=== PATIENT | female | born 1945 | race Caucasian/White ===

== ENCOUNTER 2018-04-22 18:36 | Emergency (ER) | payer OTHER ==
[~2018-04-22] VITALS: Ht 149.9 cm; Wt 50.8 kg
== END 2018-04-22 19:12 | disposition home or self-care (01) ==
LOC: FSED 18:36
DX: K04.7 Periapical abscess without sinus (principal); K02.9 Dental caries, unspecified
CPT/HCPCS: 99283

== ENCOUNTER → 2018-07-17 | Day surgery (SDC) | payer OTHER ==
[2018-07-13 12:24] LABS: BASOPHILS % 0.5 % (0.0-1.0); EOSINOPHILS # (AUTO) 0.2 (0.0-0.4); EOSINOPHILS % 2.4 % (0.0-6.0); HEMATOCRIT 39.3 % (34.2-44.1); HEMOGLOBIN 13.4 g/dL (12.0-16.0); LYMPHOCYTES # (AUTO) 2.1 (1.0-3.2); LYMPHOCYTES % 32.3 % (18.0-39.1); MEAN CORPUSCULAR HEMOGLOBIN 30.5 pg (28-32); MEAN CORPUSCULAR HGB CONC 34.1 g/dL (31-35); MEAN CORPUSCULAR VOLUME 89.3 fL (81-99); MONOCYTES # (AUTO) 0.6 (0.2-0.8); NEUTROPHILS # (AUTO) 3.5 (2.1-6.9); NEUTROPHILS % 55.6 % (38.7-80.0); PLATELET COUNT 292 x10e3/uL (140-360); RED CELL DISTRIBUTION WIDTH 11.4 % (11.7-14.4)
--- NOTE | 2018-07-13 12:26 | Diagnostic Imaging Report ---
EXAMINATION: PA and lateral views of the chest. COMPARISON: None CLINICAL HISTORY: preoperative, trigger finger DISCUSSION: Lines/tubes: None. Lungs: The lungs are well inflated and clear. No pneumonia or pulmonary edema. None. Pleura: No pleural effusion or pneumothorax. Heart and mediastinum: The cardiomediastinal silhouette is normal. Bones and soft tissues: No acute bony abnormalities. IMPRESSION: No acute cardiopulmonary abnormalities. Signed by: Dr. Ron Monahan M.D. on 07/13/2018 12:23 PM
[2018-07-13 12:42] LABS: ANION GAP 14.3 mmol/L (8-16); BLOOD UREA NITROGEN 17 mg/dL (7-26); BUN/CREATININE RATIO 25 (6-25); CALCIUM 9.8 mg/dL (8.4-10.2); CARBON DIOXIDE 30 mmol/L (22-29); CHLORIDE 98 mmol/L (98-107); CREATININE, SERUM 0.69 mg/dL (0.57-1.11); EST GLOMERULAR FILTRATION RATE > 60 ML/MIN (60-); GLUCOSE 111 mg/dL (74-118); POTASSIUM 3.3 mmol/L (3.5-5.1); SODIUM 139 mmol/L (136-145)
[~2018-07-17] MED LIST: ACYCLOVIR200 MG PO; ALEVE220 MG PO; AMITIZA24 MCG PO; ATORVASTATIN CA20 MG PO; BUPIVACAINE HCL 0.5% INJ 30 ML VIAL INJ ONE; CEFAZOLIN SOD 1 GM VIAL ONE; DEXAMETHASONE SOD PHOS INJ 4 MG/ML VIAL ONE; FENTANYL CITRATE/PF 100MCG/2 ML INJ ONE; FISH OIL 1,2001 EACH PO; HUMALOG100 UNIT/3 SC; HYDROCHLOROTHIA25 MG PO; KETOROLAC TROMETHAMINE 30 MG/ML VIAL ONE; LIDOCAINE HCL 2% LOCAL INJ 5 ML SDV VIAL INJ ONE; MECLIZINE HCL12.5 MG PO; MIDAZOLAM HCL 2 MG/2 ML VIAL ONE; MIRTAZAPINE15 MG PO; MUPIROCIN 2% OINT 22 GM TUBE ONE; ONDANSETRON HCL INJ 2 MG/ML VIAL ONE; PANTOPRAZOLE SO40 MG PO; POTASSIUM GLUCO99 M1 PO; PROPOFOL IV EMULSION 10 MG/ML 20 ML VIAL ONE; RAMIPRIL5 MG PO; RANITIDINE HCL150 MG PO; SENNA LAXATIVE1 EACH PO; SEVOFLURANE INHAL SOLN 250 ML PEN BTL ONE; TRESIBA SC; UNITHROID112 MCG PO; VIT B12 PO; VIT D3 PO
--- OUTSIDE RECORDS SUMMARY | 2018-07-17 05:21 | XMS REPORT | Clinical Summary ---
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 8 tablet Active atorvastatin (LIPITOR) 20 Take 20 mg by 1 MG tablet mouth daily. 8 Active ramipril (ALTACE) 2.5 MG Take by mouth 0 capsule daily. 8 Active insulin GLARGINE (LANTUS Inject 20 0 SOLOSTAR) 100 unit/mL Units under injection (pen) the skin. Active insulin lispro (HumaLOG Inject under 0 U-100 Insulin) 100 the skin. 1 unit/mL injection Active levothyroxine (SYNTHROID, Take one tab 0 LEVOXYL) 125 mcg tablet by mouth 5 daily on empty stomach 1 hr prior breakfast achedule appointment for additional refills Active AMITIZA 24 mcg capsule 0 8 Active traMADol (ULTRAM) 50 mg Take 50 mg by 1 tablet mouth 2 (two) 8 times a day. Active acyclovir (ZOVIRAX) 200 Take 200 mg 1 MG capsule by mouth 8 daily. Active diclofenac (VOLTAREN) 1 % 0 gel 8 Active mirtazapine (REMERON) 7.5 0 MG tablet 8 Active ranitidine (ZANTAC) 150 Take 150 mg 0 MG tablet by mouth as needed for heartburn. Active potassium gluconate 595 Take by mouth 0 mg (99 mg) tablet daily. Active cholecalciferol, vitamin Take by 0 D3, (VITAMIN D3) 5,000 mouth. unit tablet Active vitamin E 400 UNIT Take 400 0 capsule Units by mouth daily. Active folic acid (FOLVITE) 400 Take 400 mcg 0 MCG tablet by mouth daily. Active cyanocobalamin (VITAMIN Take 1,000 0 B-12) 1000 MCG tablet mcg by mouth daily. Active senna (SENOKOT) 8.6 mg Take 1 tablet 0 tablet by mouth daily. Active [id number]-lvi-[id number] Take by 0 oil 1,050-1,200 mg mouth. capsule Active naproxen sodium (ALEVE) Take by mouth 0 220 mg capsule as needed. Active meclizine (ANTIVERT) 25 Take 1 tablet 270 tablet 3 mg tablet (25 mg total) 8 by mouth 3 (three) times a day as needed for dizziness for up to 90 days. 12/20/2017 Discontinued meclizine (ANTIVERT) 25 0 mg tablet 8 12/20/2017 Discontinued levothyroxine (SYNTHROID, Take 100 mcg 1 LEVOXYL) 100 mcg tablet by mouth 8 daily. 12/21/2017 Discontinued meclizine (ANTIVERT) 25 Take 1 tablet 180 tablet 3 mg tablet (25 mg total) 8 by mouth 3 (three) times a day as needed for dizziness for up to 180 days. Active Problems Not on file Encounters Care Team Description Date Type Specialty Tin Briseno MD Tinnitus of both ears (Primary Dx); Vertigo, benign paroxysmal, bilateral; Sensorineural hearing loss, bilateral 12/20/2017 Office Visit Otolaryngology after 07/16/2017 Family History Medical History Relation Name Comments Cancer Father Heart disease Father Hypertension Father Cancer Maternal Grandfather Diabetes Maternal Grandfather Diabetes Maternal Grandmother Diabetes Mother Hypertension Paternal Grandfather Diabetes Paternal Grandmother Relation Name Status Comments Father Maternal Grandfather Maternal Grandmother Mother Paternal Grandfather Paternal Grandmother Social History Date Tobacco Use Types Packs/Day Years Used Former Smoker 13 Smokeless Tobacco: Never Used Alcohol Use Drinks/Week oz/Week Comments Yes 2 Glasses of 1.2 wine Sex Assigned at Date Recorded Not on file Industry Job Start Date Occupation Not on file Not on file Not on file Travel End Travel History Travel Start No recent travel history available. Last Filed Vital Signs Time Taken Vital Sign Reading 12/20/2017 1:45 PM CDT Blood Pressure 154/72 12/20/2017 1:45 PM CDT Pulse 103 - Temperature - - Respiratory Rate - - Oxygen Saturation - - Inhaled Oxygen - Concentration 12/20/2017 1:45 PM CDT Weight 51.7 kg (114 lb) - Height - - Body Mass Index - Plan of Treatment Health Maintenance Due Date Last Done Comments COLON CANCER SCREENING 1996 SHINGRIX VACCINE (1 of 2) 1996 ZOSTER VACCINE 2006 BREAST CANCER SCREENING 07/29/2016 07/29/2014, 07/26/2013, 07/17/2012 INFLUENZA VACCINE 04/04/2018 05/12/2016, 05/12/2015, 05/05/2015, Additional history exists PNEUMOCOCCAL-13 Completed 10/29/2014 PNEUMOCOCCAL Completed 05/12/2015, 05/05/2015, 05/05/2006 POLYSACCHARIDE VACCINE AGE 65 AND OVER Procedures Comments Procedure Name Priority Date/Time Associated Diagnosis COMPUTERIZED DYNAMIC Routine 12/20/2017 Vertigo, benign POSTUROGRAPHY 2:54 PM CDT paroxysmal, bilateral COMPREHENSIVE HEARING Routine 12/20/2017 Tinnitus of both ears TEST 2:54 PM CDT Vertigo, benign paroxysmal, bilateral after 07/16/2017 Results * Comprehensive hearing test (12/20/2017 2:54 PM CDT) Narrative Performed At * [facility] (12/20/2017 2:54 PM CDT) Narrative Performed At after 07/16/2017 Insurance Payer Benefit Subscriber ID Type Phone Address Plan / Group [employer] TEX[employer] xxxxxxxxx [facility] Advance Directives Patient has advance care planning documents on file. For more information, judie sarabia contact: Giuliano Muller [address] [place] [address]
--- OUTSIDE RECORDS SUMMARY | 2018-07-17 05:22 | XMS REPORT | Summary of Care ---
Author Author [facility] Organization [facility] Address Unknown Phone Unavailable Encounter HQ Zander(FIN) [id number] Date(s): 12/18/17 - 12/18/17 [facility] [address], [address] [place] [address]- [phone] Discharge Disposition: Home or Self Care Attending Physician: Zoe Elaine DO Vital Signs Most recent to 1 oldest [Reference Range]: Height 149.86 cm (12/18/17 3:50 PM) Temperature Oral 98.3 DegF [96.4-99.1 DegF] (12/18/17 3:50 PM) Blood Pressure 128/79 mmHg [90-140/60-90 mmHg] (12/18/17 3:50 PM) Respiratory Rate 14 BRMIN [14-20 BRMIN] (12/18/17 3:50 PM) Peripheral Pulse 86 bpm Rate [60-100 bpm] (12/18/17 3:50 PM) Weight 51.364 kg (12/18/17 3:50 PM) Body Mass Index 22.87 m2 (12/18/17 3:50 PM) Problem List Condition Effective Dates Status Health Status Informant Anxiety Active disorder(Confirmed) Benign Active hypertension(Confirm ed) Chronic pain Active syndrome(Confirmed) IBS (irritable bowel Active syndrome)(Confirmed) Vitamin B 12 Active deficiency(Confirmed ) Body mass index Active (BMI) 22.0-22.9, adult(Confirmed) GERD Active (gastroesophageal reflux disease)(Confirmed) Herpes Active simplex(Confirmed) H/O Active hypercalcemia(Confir med) History of squamous Active cell carcinoma of skin(Confirmed) Menopausal syndrome Active (hot flushes)(Confirmed) Mixed Active hyperlipidemia(Confi rmed) Hypothyroidism(Confi Active rmed) Left breast Active mass(Confirmed) Fibromyalgia(Confirm Active ed) Tenosynovitis, de Active Quervain(Confirmed) Insomnia(Confirmed) Active Spinal stenosis, Active lumbar region(Confirmed) Type 1 diabetes Active mellitus with hemoglobin A1c goal of less than 7.0%(Confirmed) Vitamin D Active deficiency(Confirmed ) Allergies, Adverse Reactions, Alerts Substance Reaction Severity Status sulfa drugs Active aspirin Active Medications Voltaren Topical 1% topical gel 2 gm=1 appl, TOP, QID, PRN for pain, # 100 gm, 1 Refill(s), Pharmacy: [facility] #[id number] Start Date: 12/18/17 Stop Date: 01/01/18 Status: Ordered Results No data available for this section Immunizations Given and Recorded Vaccine Date Status Refusal Reason diphtheria/pertussis, acel/tetanus adult 07/28/17 Given Hx influenza vaccine-unspecified 06/04/17 Recorded influenza virus vaccine, inactivated 05/05/16 Recorded pneumococcal 23-valent vaccine 09/04/14 Recorded Procedures Procedure Date Related Diagnosis Body Site Status Mammogram - screening1 11/07/16 Completed Colonoscopy2 06/10/16 Completed Bone density scan3 03/28/16 Completed Eye examination 01/03/16 Completed MRI of lumbar spine4 11/03/15 Completed Breast implantation5 1983 Completed Total abdominal hysterectomy with bilateral 1975 Completed salpingo-oophorectomy Uterine operation1975 Completed Appendectomy Completed 1Mammogram/usg in a year 2History of polyps. Next [address] Mello 3Osteopenia 4multilevel degenerative disc disease 5silicone 6uterus removal Social History Social History Type Response Exercise Exercise duration: 60. Exercise type: Running. Employment/School Status: Retired. Alcohol Current, Type Wine. Frequency: 1-2 times per week. Smoking Status Former smoker; Type: Cigarettes; Exposure to Tobacco Smoke None; Cigarette Smoking Last 365 Days No; Reg Smoking Cessation Counseling No entered on: 12/18/17 Assessment and Plan No data available for this section
--- OUTSIDE RECORDS SUMMARY | 2018-07-17 05:22 | XMS REPORT | Summary of Care ---
Author Author [facility] Organization [facility] Address Unknown Phone Unavailable Encounter HQ Jose Gr_reece(FIN) [id number] Date(s): 10/16/17 - 10/17/17 [facility] [address], [address] [place] [address]- [phone] Vital Signs No data available for this section Problem List Condition Effective Dates Status Health [...] Status sulfa drugs Active aspirin Active Medications No data available for this section Results No data available for this section [...]
--- OUTSIDE RECORDS SUMMARY | 2018-07-17 05:22 | XMS REPORT | Summary of Care ---
Author Author [facility] Organization [facility] Address Unknown Phone Unavailable Encounter RIANA Fermin(ISABELLA) [id number] Date(s): 08/21/17 - 08/21/17 [facility] [address], [address] [place] [address]- [phone] Discharge Disposition: Home or Self Care Attending Physician: Sary Jacobson MD Vital Signs Most recent to 1 oldest [Reference Range]: Height 149.86 cm (08/21/17 1:23 PM) Temperature Oral 98.3 DegF [96.4-99.1 DegF] (08/21/17 1:23 PM) Blood Pressure 113/65 mmHg [90-140/60-90 mmHg] (08/21/17 1:23 PM) Respiratory Rate 14 BRMIN [14-20 BRMIN] (08/21/17 1:23 PM) Peripheral Pulse 97 bpm Rate [60-100 bpm] (08/21/17 1:23 PM) Weight 50.455 kg (08/21/17 1:23 PM) Body Mass Index 22.47 m2 (08/21/17 1:23 PM) Problem List Condition Effective Dates Status Health Status Informant Anxiety Active disorder(Confirmed) Benign Active hypertension(Confirm ed) Chronic pain Active syndrome(Confirmed) IBS (irritable bowel Active syndrome)(Confirmed) Vitamin B 12 Active deficiency(Confirmed ) GERD Active (gastroesophageal reflux disease)(Confirmed) Herpes Active simplex(Confirmed) H/O Active hypercalcemia(Confir med) History of squamous Active cell carcinoma of skin(Confirmed) Menopausal syndrome Active (hot flushes)(Confirmed) Mixed Active hyperlipidemia(Confi rmed) Hypothyroidism(Confi Active rmed) Left breast Active mass(Confirmed) Fibromyalgia(Confirm Active ed) Insomnia(Confirmed) Active Spinal stenosis, Active lumbar region(Confirmed) Type 1 diabetes Active mellitus with hemoglobin A1c goal of less than 7.0%(Confirmed) Vitamin D Active deficiency(Confirmed ) Allergies, Adverse Reactions, Alerts Substance Reaction Severity Status sulfa drugs Active aspirin Active Medications biotin 1000 mcg oral tablet 1,000 microgram=1 tab, PO, Daily, # 30 tab, 0 Refill(s) Start Date: 08/21/17 Status: Ordered Vitamin C 1000 mg oral tablet 1,000 mg=1 tab, PO, Daily, # 30 tab, 0 Refill(s) Start Date: 08/21/17 Status: Ordered Results No data available for this section Immunizations Given and Recorded Vaccine Date Status Refusal Reason diphtheria/pertussis, acel/tetanus adult 07/28/17 Given influenza virus vaccine, inactivated 05/05/16 Recorded pneumococcal 23-valent vaccine 09/04/14 Recorded Procedures Procedure Date Related Diagnosis Body Site Mammogram - screening1 11/07/16 Colonoscopy2 06/10/16 Bone density scan3 03/28/16 Eye examination 01/03/16 MRI of lumbar spine4 11/03/15 Breast implantation1983 Total abdominal hysterectomy with bilateral 1975 salpingo-oophorectomy Uterine operation6 1975 Appendectomy 1Mammogram/usg in a year 2History of polyps. [...] Days No; Reg Smoking Cessation Counseling No Assessment and Plan No data available for this section
--- OUTSIDE RECORDS SUMMARY | 2018-07-17 05:22 | XMS REPORT | Summary of Care ---
Author Author [facility] Outpatient Imaging [facility] Outpatient [facility] Address Unknown Phone Unavailable Encounter HQ Encntr_alias(FIN) [id number] Date(s): 01/06/16 - 01/06/16 [facility] Outpatient Imaging [facility] [address] [address], [address] [phone] Discharge Disposition: Home Attending Physician: Saima Eduardo MD Vital Signs No data available for this section Problem List No data available for this section Allergies, Adverse Reactions, Alerts No data available for this section Medications No data available for this section Results No data available for this section Immunizations No data available for this section Procedures No data available for this section Social History No data available for this section Assessment and Plan No data available for this section
--- OUTSIDE RECORDS SUMMARY | 2018-07-17 05:22 | XMS REPORT | Summary of Care ---
Author Author [facility] Outpatient Imaging [facility] Outpatient [facility] Address Unknown Phone Unavailable Encounter HQ Encntr_alisteven(FIN) [id number] Date(s): 10/20/15 - 10/20/15 [facility] Outpatient Imaging [facility] [address], [address] [phone] Discharge Disposition: Home Attending Physician: Dia Hess MD Vital Signs No data available for [...]
--- OUTSIDE RECORDS SUMMARY | 2018-07-17 05:22 | XMS REPORT | Summary of Care ---
Author Author [facility] Organization [facility] Address Unknown Phone Unavailable Encounter RIANA Fermin(FIN) [id number] Date(s): 08/01/17 - 08/02/17 [facility] [address], [address] [place] [address]- [phone] Vital Signs No data available for this [...] Status sulfa drugs Active aspirin Active Medications hydrochlorothiazide 50 mg oral tablet See Instructions, TAKE 1 TABLET EVERY DAY, # 90 tab, 1 Refill(s), Pharmacy: [facility]/ pharmacy #[id number] Start Date: 08/01/17 Status: Ordered levothyroxine 125 mcg (0.125 mg) oral tablet 125 microgram=1 tab, PO, Daily, # 30 tab, 1 Refill(s), Pharmacy: [facility]/pharmacy #[id number] Start Date: 08/02/17 Status: Ordered meclizine 25 mg oral tablet 25 mg=1 tab, PO, TID, PRN for motion sickness, as needed for dizziness, X 30 day , # 60 tab, 0 Refill(s), Pharmacy: [facility]/pharmacy #[id number] Start Date: 08/01/17 Stop Date: 08/31/17 Status: Ordered Results No data available for this section Immunizations Given and Recorded Vaccine Date Status Refusal Reason diphtheria/pertussis, acel/tetanus adult 07/28/17 Given influenza virus vaccine, inactivated 05/05/16 Recorded pneumococcal 23-valent vaccine 09/04/14 Recorded Procedures Procedure Date Related Diagnosis Body Site Mammogram - screening1 11/07/16 Colonoscopy2 06/10/16 Bone density scan3 03/28/16 Eye examination 01/03/16 MRI of lumbar spine4 11/03/15 Breast implantation5 1983 Total abdominal hysterectomy with bilateral 1975 salpingo-oophorectomy Uterine operation1975 Appendectomy 1Mammogram/usg in a year 2History of [...]
--- OUTSIDE RECORDS SUMMARY | 2018-07-17 05:22 | XMS REPORT | Summary of Care ---
Author Author [facility] Organization [facility] Address Unknown Phone Unavailable Encounter RIANA Fermin(ISABELLA) [id number] Date(s): 07/28/17 - 07/28/17 [facility] [address] [place] [address]- Discharge Diagnosis: Bite from cat Discharge Disposition: Home or Self Care Attending Physician: Melvi Jaquez MD Vital Signs Most recent to 1 2 oldest [Reference Range]: Height 149.86 cm (07/28/17 11:45 AM) Temperature Oral 97.9 DegF 97.8 DegF [96.4-99.1 DegF] (07/28/17 1:35 PM) (07/28/17 11:45 AM) Blood Pressure 110/71 mmHg [90-140/60-90 mmHg] (07/28/17 11:45 AM) Systolic Blood 112 mmHg Pressure [90-140 (07/28/17 1:35 PM) mmHg] Diastolic Blood 70 mmHg Pressure [60-90 (07/28/17 1:35 PM) mmHg] Respiratory Rate 18 BRMIN 18 BRMIN [14-20 BRMIN] (07/28/17 1:35 PM) (07/28/17 11:45 AM) Peripheral Pulse 69 bpm 73 bpm Rate [60-100 bpm] (07/28/17 1:35 PM) (07/28/17 11:45 AM) Weight 48.636 kg (07/28/17 11:45 AM) Body Mass Index 21.66 m2 (07/28/17 11:45 AM) Problem List Condition Effective Dates Status Health [...] Status sulfa drugs Active aspirin Active Medications Augmentin 500 mg oral tablet 1 tab, PO, Q8H, X 10 day, # 30 tab, 0 Refill(s), Pharmacy: [facility]/pharmacy #[id number] Start Date: 07/28/17 Stop Date: 08/07/17 Status: Ordered Results No data available for [...]
--- OUTSIDE RECORDS SUMMARY | 2018-07-17 05:22 | XMS REPORT | Summary of Care ---
Author Author [facility] Organization [facility] Address Unknown Phone Unavailable Encounter HQ Jayde_reece(FIN) [id number] Date(s): 10/24/17 - 10/25/17 [facility] [address], [address] [place] [address]- [phone] Vital Signs No data available for this [...] Status sulfa drugs Active aspirin Active Medications meclizine 25 mg oral tablet 25 mg=1 tab, PO, TID, PRN Other-See Comments, X 10 day, # 30 tab, 0 Refill(s), P harmacy: [facility] Start Date: 10/24/17 Stop Date: 10/27/17 Status: Completed Results No data available for this section [...]
--- OUTSIDE RECORDS SUMMARY | 2018-07-17 05:22 | XMS REPORT | Continuity of Care Document ---
Author Author [facility] Interface Address Unknown Phone Unavailable Problems Problem Status Onset Date Classification Date Reported Comments Source DX: [id number] DYSPEPSIA, R13.10=DYS Active 06/28/2018 [facility] DX: M81.0=AGE-RELATED OSTEOPOROSIS WITHO Active 03/02/2018 [facility] Discharge Diagnosis: Bite from cat 07/28/2017 07/31/2017 [facility] CAT BITE Active 07/28/2017 [facility] UNK Active 10/28/2016 [facility] M54.31 - "SCIATICA, RIGHT SIDE" Active 10/20/2015 [facility] Anxiety disorder Active Problem 03/24/2018 [facility] Benign hypertension Active Problem 03/24/2018 [facility] Chronic pain syndrome Active Problem 03/24/2018 [facility] IBS (<span ID="[id number]">Confirmed</span>) Active Problem 03/24/2018 [facility] Vitamin B 12 deficiency Active Problem 03/24/2018 [facility] GERD (<span ID="[id number]">Confirmed</span>) Active Problem 03/24/2018 [facility] Herpes simplex Active Problem 03/24/2018 [facility] H/O hypercalcemia Active Problem 03/24/2018 [facility] History of squamous cell carcinoma of skin Active Problem 03/24/2018 [facility] Menopausal syndrome (<span ID="[id number]">Confirmed</span>) Active Problem 03/24/2018 [facility] Mixed hyperlipidemia Active Problem 03/24/2018 [facility] Hypothyroidism Active Problem 03/24/2018 [facility] Left breast mass Active Problem 03/24/2018 [facility] Fibromyalgia Active Problem 03/24/2018 [facility] Insomnia Active Problem 03/24/2018 [facility] Spinal stenosis, lumbar region Active Problem 03/24/2018 [facility] Type 1 diabetes mellitus with hemoglobin A1c goal of less than 7.0% Active Problem 03/24/2018 [facility] Vitamin D deficiency Active Problem 03/24/2018 [facility] Hypomagnesemia Active Problem 11/10/2016 [facility] Pharyngitis Active Problem 11/10/2016 [facility] Body mass index 22.0-22.9, adult(<span ID="[id number]">Confirmed</span>) Active Problem 03/24/2018 [facility] Osteoporosis Active Problem 03/24/2018 [facility] Tenosynovitis, de Quervain Active Problem 03/24/2018 [facility] SCC (<span ID="[id number]">Confirmed</span>) Active Problem 03/24/2018 [facility] UNSPECIFIED LUMP IN BREAST Active [facility] Medications Medication Details Route Status Patient Instructions Ordering Provider Order Date Source tizanidine 2 mg oral tablet 4 mg=2 tab, PO, Q12H, PRN for muscle spasms, as needed for pain, # 40 tab, 0 Refill(s), Pharmacy: [facility]/pharmacy #[id number] Active 03/01/[facility] Levothyroxine Sodium 0.125 MG Oral Tablet [Unithroid] 125 microgram=1 tab, PO, Daily, # 90 tab, 0 Refill(s) Active 03/01/2018 [facility] ramipril 2.5 mg oral capsule 2.5 mg=1 cap, PO, Daily, # 90 cap, 1 Refill(s), Pharmacy: [facility]/pharmacy #[id number] Active 02/07/2018 [facility] Hydrochlorothiazide 50 MG Oral Tablet 50 mg=1 tab, PO, Daily, # 90 tab, 0 Refill(s), Pharmacy: [facility]/pharmacy #[id number] Active 01/24/2018 [facility] levothyroxine 100 mcg (0.1 mg) oral tablet 100 microgram=1 tab, PO, Daily, # 90 tab, 0 Refill(s), Pharmacy: [facility]/pharmacy #[id number] Active 01/11/2018 [facility] 3 ML Insulin Glargine 100 UNT/ML Pen Injector [Basaglar] 25 unit, SUB-Q, Bedtime, # 2 box, 1 Refill(s), Pharmacy: [facility] Active 01/04/2018 [facility] Diclofenac Sodium 0.01 MG/MG Topical Gel [Voltaren] 2 gm=1 appl, TOP, QID, PRN for pain, # 100 gm, 1 Refill(s), [id number] 12[facility]18[facility]2017 [facility] meclizine 25 mg oral tablet 25 mg=1 tab, PO, BID, PRN Other- See Comments, X 30 day, # 60 tab, 1 Refill(s), Pharmacy: [facility] No Longer Active 11/22/2017 [facility] meclizine 25 mg oral tablet 25 mg=1 tab, PO, TID, PRN Other- See Comments, X 90 day, # 270 tab, 0 Refill(s), [id number] Active 10/28/[address] [facility] Wrist Brace Misc/Other 1 ea, MISC, PRN, PRN As directed by physician, dispense one thumb spica brace, # 1 unit, 0 Refill(s) Active 10/25/2017 [facility] meclizine 25 mg oral tablet 25 mg=1 tab, PO, TID, PRN Other- See Comments, X 10 day, # 30 tab, 0 Refill(s), Pharmacy: [facility] No Longer Active 10/24/2017 [facility] tizanidine 2 mg oral tablet 2 mg=1 tab, PO, Q8H, PRN for muscle spasms, as needed for pain, # 30 tab, 0 Refill(s), [id number] Active 10/10/2017 [facility] Vitamin C 1000 mg oral tablet 1,000 mg=1 tab, PO, Daily, # 30 tab, 0 Refill(s) Active 08/21/2017 [facility] biotin 1000 mcg oral tablet 1,000 microgram=1 tab, PO, Daily, # 30 tab, 0 Refill(s) Active 08/21/2017 [facility] levothyroxine 125 mcg (0.125 mg) oral tablet 125 microgram=1 tab, PO, Daily, # 30 tab, 1 Refill(s), [id number] Active 08/03/2017 [facility] meclizine 25 mg oral tablet 25 mg=1 tab, PO, TID, PRN for motion sickness, as needed for dizziness, X 30 day, # 60 tab, 0 Refill(s), [id number] Active 08/02/2017 [facility] Hydrochlorothiazide 50 MG Oral Tablet See Instructions, TAKE 1 TABLET EVERY DAY, # 90 tab, 1 Refill(s), [id number] Active 08/02/2017 [facility] Amoxicillin 500 MG / Clavulanate 125 MG Oral Tablet [Augmentin 500-mg] 1 tab, PO, Q8H, X 10 day, # 30 tab, 0 Refill(s), [id number] Active 07/28/2017 [facility] atorvastatin 20 mg oral tablet See Instructions, # 90 tab, Refill(s) 1, TAKE 1 TABLET EVERY DAY, [id number] Active 10/30/2016 [facility] Allergies, Adverse Reactions, Alerts Substance Category Reaction Severity Reaction type Status Date Reported Comments Source sulfa drugs Assertion Drug allergy Active [facility] aspirin Assertion Drug allergy Active [facility] Immunizations Immunization Date Given Site Status Last Updated Comments Source diphtheria/pertussis, acel/tetanus adult 07/28/2017 Left deltoid completed [facility] Hx influenza vaccine-unspecified 06/04/2017 completed [facility] influenza virus vaccine, inactivated 05/05/2016 completed [facility] pneumococcal 23-valent vaccine 09/04/2014 completed [facility] Results Order Name Results Value Reference Range Date Interpretation Comments Source Abdomen/Pelvis w/wo IV contrast CT Abdomen/Pelvis w/wo IV contrast CT Clinical Indication: - K30 Functional dyspepsia, R07.9 Chest pain, unspecified, R10.32 Left lower quadrant pain; CT imaging performed at this location utilizes radiation dose optimization techniques which include one or more of the following: -Automated exposure control -Adjustment of the mA and/or kV according to patient size -Use of iterative reconstruction technique CT Radiation Dose DLP Comparison: None Technique: Multi-detector CT imaging of the abdomen and pelvis is performed with contrast. Coronal and sagittal reconstructions were obtained. IV CONTRAST: 100 mL of Omnipaque GI CONTRAST: oral contrast was administered . FINDINGS: CT ABDOMEN : LUNG BASES: Unremarkable. ABDOMINAL SOLID ORGANS: The liver shows no focal mass lesions. Normal appearing pancreas with no inflammatory changes. Normal adrenal glands. No mass lesions are seen The pancreas shows no focal mass or inflammatory changes. No ductal dilitation. The spleen is intact. The kidneys show normal size contour and axis. Normal gallbladder STOMACH AND BOWEL: The stomach is unremarkable. Small bowel loops visualized are normal caliber. The colon in the abdomen are unremarkable. PERITONEUM AND RETROPERITONEUM: There is no abdominal lymphadenopathy. There is no pneumoperitoneum or abdominal ascites. There are no retroperitoneal abnormalities. VASCULAR STRUCTURES: The abdominal aorta is unremarkable without aneurysm. The inferior vena cava is unremarkable. The mesenteric vessels and portal veinous structures are grossly patent. OSSEOUS STRUCTURES: There are no significant osseous abnormalities seen. ------- CT PELVIS : BOWEL: Rectosigmoid colon is unremarkable. PERITONEAL AND EXTRAPERITONEAL REGIONS: There is no pelvic free fluid or lymphadenopathy. The inguinal regions are unremarkable. BLADDER / : The bladder is unremarkable. OSSEOUS STRUCTURES: There are no significant osseous abnormalities seen. ----- IMPRESSION: 1. No acute abdominal or pelvic findings. 07/05/2018 - - Read by: Kristofer Silva MD Dictated Date/time: 07/05/18 18:10 Electronically Signed by: Kristofer Silva MD 07/05/18 18:13 FINAL REPORT [facility] Abdomen complete US Abdomen complete US Clinical Indication: - dyspepsia Comparison: None TECHNIQUE: Grayscale and limited color sonographic evaluation of the abdomen was performed with standard technique. FINDINGS: LIVER: The visualized liver shows normal contour, size, and morphology with normal parenchymal echo texture. BILE DUCTS: The intrahepatic and extrahepatic bile ducts are not dilated with the common bile duct measuring 5 mm. GALLBLADDER: Density in the gallbladder suggestive of sludge versus non-shadowing gallstones. There is no gallbladder wall thickening or pericholecystic fluid. PANCREAS: The visualized pancreas appears unremarkable.. SPLEEN: The spleen is unremarkable and measures 6.5 cm. KIDNEY: The right kidney measures 10.4 cm. The left kidney measures 10.3 cm. There is normal renal contour and morphology, with normal parenchymal echotexture. There is no hydronephrosis. AORTA AND INFERIOR VENA CAVA: Visualized portions appear unremarkable. ASCITES: There is no right abdominal ascites. IMPRESSION: 1. Gallbladder sludge versus non-shadowing gallstones. 2. Otherwise unremarkable abdominal ultrasound. SL: [id number] 07/05/2018 - - Read by: Dustin Muhammad MD Dictated Date/time: 07/05/18 15:01 Electronically Signed by: Dustin Muhammad MD 07/05/18 15:04 FINAL REPORT [facility] Breast Mammo Scrn TIEN incl CAD MA Breast Mammo Scrn TIEN incl CAD MA BILATERAL DIGITAL SCREENING MAMMOGRAM WITH CAD: 03/21/2018 CLINICAL: Routine screening. Current study was evaluated with a Computer Aided Detection (CAD) system. COMPARISON:Comparison is made to exams dated: 11/07/2016 mammogram and 11/07/2016 ultrasound - [facility]. TECHNIQUE: Mammographic views were obtained using digital acquisition. Clariture Version 1.3 was utilized for computer aided detection. FINDINGS: The tissue of both breasts is heterogeneously dense, which could obscure detection of small masses. Benign appearing densities are noted in both breasts. Bilateral breast implants are stable and intact. No significant masses, calcifications, or other findings are seen in either breast. There has been no significant interval change. IMPRESSION: BENIGN RECOMMENDATION:There is no mammographic evidence of malignancy. A 1 year screening mammogram is recommended.(03/22/2019) This exam was interpreted at [id number] for [facility]. SUMMARY: As the patient has dense breast parenchyma with scattered densities, this could obscure additional abnormalities. The patient would likely benefit from a supplemental screening test such as bilateral ultrasound. This should be discussed with the patient by the referring physician. Juan pratt/penrad:03/21/2018 14:56:49 Machine Loader(s): Anu Mar [facility] letter sent: BI-RADS 1/2 Dense Mammogram BI-RADS: 2 Benign 03/21/2018 - - Read by: Juan Munoz MD Dictated Date/time: 03/21/18 14:56 Electronically Signed by: Juan Munoz MD 03/21/18 14:56 FINAL REPORT [facility] Bone Density Scan Bone Density Scan Study: Bone Density Scan Clinical Indication: - m81.0 osteoporosis; Images of the axial lumbar spine and left hip have been performed using LiveSafe Discovery SL scanner. COMPARISON: None FINDINGS: The left hip bone mineral density is 81% of the peak reference bone mass with a T-score of -1.5. Left hip BMD is 0.758 g/cm2. Left femoral neck BMD is 0.650 g/cm2 and T-score of -1.8. The axial lumbar bone mineral density is 83% of the peak reference bone mass with a T-score -1.6. Axial lumbar average BMD is 0.870 g/cm2. IMPRESSION: 1. Osteopenia of the left femoral neck. 2. Osteopenia of the total left hip. 3. Osteopenia of the lumbar spine. The World Health Organization has established that OSTEOPOROSIS occurs at -2.5 or more standard deviations (SD) below peak bone mass (T-score on the Hologic report). OSTEOPENIA (low bone mass) occurs at greater than -1.0 standard deviations to -2.5 standard deviations below peak bone mass. SL: [id number] 03/21/2018 - - Read by: Ramakrishna Tidwell MD Dictated Date/time: 03/21/18 14:17 Electronically Signed by: Ramakrishna Tidwell MD 03/21/18 14:18 FINAL REPORT [facility] Digital Mammo DX Tien MA Digital Mammo DX Tien MA - DIGITAL MAMMO DX TIEN MA BILATERAL DIGITAL DIAGNOSTIC MAMMOGRAM WITH CAD: 11/07/2016 Current study was evaluated with a Computer Aided Detection (CAD) system. The patient has comparison exams at an outside facility but did not bring them with her. She is requesting that they be obtained for her as she has signed a release. There are scattered fibroglandular densities in both breasts. Bilateral saline prepectoral breast implants are noted and imaged with routine and implant displaced views. Implants obscure breast parenchyma making mammographic interpretation difficult. The patient reports a lump in the posterior lower inner left breast. This area was too posterior for spot compression views to be performed. Ultrasound is recommended. There is a benign coarse calcification along the inferior left implant. No other significant masses, calcifications, or other findings are seen in either breast. IMPRESSION: INCOMPLETE: NEEDS ADDITIONAL IMAGING EVALUATION Ultrasound is recommended for further evaluation of the palpable area of concern on the left. SUMMARY: Prior mammograms would be of added benefit to document buttermaker stability. This aids in establishing benignity. The patient should make additional efforts to locate her prior exams. An addendum will be made if additional films are provided, and the patient may need to return for additional imaging. SUMMARY: Ultrasound will be performed at this time; please see dedicated separate report. Ramakrishna Tidwell M.D. ap/:11/07/2016 14:39:04 Machine Loader: Teresa Torres, [facility] This exam was dictated and interpreted by [id number] for [facility]. Mammogram BI-RADS: 0 Indeterminate 11/07/2016 - - Read by: Ramakrishna Tidwell MD Dictated Date/time: 11/07/16 14:39 Electronically Signed by: Ramakrishna Tidwell MD 11/07/16 14:39 FINAL REPORT [facility] Breast Complete Tien US Breast Complete Tien US - BREAST COMPLETE TIEN US ULTRASOUND OF BOTH BREASTS AND BOTH AXILLA: 11/07/2016 Comparison is made to exam dated: 11/07/2016 mammogram - [facility]. Ultrasound was performed over all four quadrants, retroareolar region, and axilla. Color flow and real-time ultrasound of both breasts and both axilla were performed. Florez scale images of the real-time examination were reviewed. No abnormalities were seen sonographically in either breast or either axilla. Bilateral implants are intact. Focused ultrasound over the palpable area of concern at the left breast 8 o'clock, 8 cm from the nipple demonstrates a fold in the left implant. No suspicious finding is seen at the palpable area of concern. IMPRESSION: BENIGN There is no sonographic evidence of malignancy. A 1 year screening mammogram is recommended. Ramakrishna Tidwell M.D. ap/:11/07/2016 15:09:30 Machine Loader: Marii Fairchild, [facility] This exam was dictated and interpreted by [id number] for [facility]. letter sent: Normal exam Ultrasound BI-RADS: 2 Benign 11/07/2016 - - Read by: Ramakrishna Tidwell MD Dictated Date/time: 11/07/16 15:09 Electronically Signed by: Ramakrishna Tidwell MD 11/07/16 15:09 FINAL REPORT [facility] Spine cervical 2 or 3 view DX Spine cervical 2 or 3 view DX EXAM: EXAM: XR CERVICAL SPINE 3 VIEWS DATE: 01/06/2016 2:07 PM CDT INDICATION: M62.838 Other muscle spasm COMPARISON: None TECHNIQUE: AP, open-mouth odontoid and lateral radiographs of the cervical spine show from the skull base through T1. DISCUSSION: Vertebral body heights and alignment are overall preserved. There is mild disc space narrowing at C5-C6 and at C6-C7 with mild anterior spondylosis at these levels. No fractures or osseous destructive lesions are seen. Atlantoaxial articulation is normal in appearance with portions of the odontoid process obscured by overlying occiput on the open-mouth view.. No prevertebral or paraspinous soft tissue abnormality is identified. IMPRESSION: Mild degenerative disc disease at C5-C6 and at C6-C7. 01/06/2016 - - Read by: Raymundo Kemp MD Dictated Date/time: 01/06/16 14:14 Electronically Signed by: Raymundo Kemp MD 01/06/16 14:16 FINAL REPORT [facility] Spine lumbar wo contrast MRI Spine lumbar wo contrast MRI MRI LUMBAR SPINE WITHOUT CONTRAST INDICATION: Right-sided lumbar radiculopathy COMPARISON: None DISCUSSION: Image detail is degraded by motion artifacts. The usual five nonrib-bearing lumbar-type vertebral bodies are presumed present. Alignment: There is mild levoscoliosis of the lumbar spine. There is grade 1 retrolisthesis at L2-L3.. Vertebral bodies: Degenerative endplate changes are noted throughout the lumbar spine. The vertebral bodies are otherwise normal in height and signal, from T11 through the distal sacrum. Distal spinal cord: Grossly normal in signal and morphology. The tip of the conus is at the mid L2 level. Paraspinal soft tissues: No signal abnormalities are visualized. Disc spaces, spinal canal and foramina: T12-L1: The disc is normal in height and signal. There is no significant arthrosis. The spinal canal and foramina are patent. L1-L2: There is mild loss of disc height. There is no significant facet arthrosis. The spinal canal and foramina are patent. L2-L3: There is grade 1 retrolisthesis and loss of disc height. Facet arthrosis contributes to moderate spinal canal stenosis and moderate bilateral foraminal stenosis. There is right lateral recess stenosis, with potential impingement of the descending right L3 nerve root. L3-L4: The disc is normal in height and signal. Disc bulge and facet arthrosis result in mild spinal canal stenosis and mild bilateral foraminal stenosis. L4-L5: The disc is normal in height and signal. Disc bulge and facet arthrosis result in mild spinal canal stenosis, mild right foraminal stenosis, and moderate left foraminal stenosis. L5-S1: There is loss of the dorsal disc height. Disc bulge and facet arthrosis contribute to moderate bilateral foraminal stenosis, right greater than left. The spinal canal is patent. IMPRESSION: 1. Spondylosis results in varying degrees of spinal canal and foraminal stenosis, as described. Spinal canal stenosis is moderate at worst, at L2-L3. There is right lateral recess stenosis at L2-L3, with potential nerve root impingement. Foraminal stenosis is moderate at worst, at multiple levels. 2. Grade 1 retrolisthesis at L2-L3. SL:16 11/03/2015 - - Read by: Dashawn Hare MD Dictated Date/time: 11/03/15 12:13 Electronically Signed by: Dashawn Hare MD 11/03/15 12:36 FINAL REPORT [facility] Spine lumbar series DX Spine lumbar series DX EXAM: X-RAY LUMBAR SPINE 5 VIEWS DATE: 10/20/2015 12:00 PM ENT PHYSICIAN INDICATION: M54.31 Sciatica, right side. Lower back and right-sided hip pain. COMPARISON: None TECHNIQUE: AP, lateral, bilateral oblique, and lateral coned-down views FINDINGS: 5 nonrib-bearing lumbar-type vertebral bodies are present with a mild levoscoliotic curvature centered at L3. Vertebral body heights are well- maintained with no fractures or osseous destructive lesions. Severe disc space narrowing with marginal osteophyte formation is present at L2-L3. Moderate disc space narrowing is seen at L1-L2 with marginal spondylosis as well. Mild disc space narrowing is present at L3-L4 with marginal spondylosis. Mild anterior spondylosis is seen at L4-L5 and at L5-S1 with no associated disc space narrowing at these levels. No spondylolysis or spondylolysis is are seen. Sacroiliac joints are normal in appearance. No paraspinal soft tissue pathology is seen. IMPRESSION: Multilevel degenerative disc disease of the lumbar spine with mild levoscoliosis. 10/20/2015 - - Read by: Raymundo Kemp MD Dictated Date/time: 10/20/15 12:49 Electronically Signed by: Raymundo Kemp MD 10/20/15 12:51 FINAL REPORT [facility] Vital Signs Vital Sign Value Date Comments Source BMI Calculated 23.07 03/01/2018 [facility] Weight 51.818 03/01/2018 [facility] Height 149.86 cm 03/01/2018 [facility] Systolic (mm Hg) 116 03/01/2018 [facility] Diastolic (mm Hg) 70 03/01/[facility] Respitory Rate 16 03/01/[facility] Heart Rate 101 03/01/[facility] Temperature Oral (F) 97.4 F 03/01/[facility] BMI Calculated 22.87 12/18/2017 [facility] Weight 51.364 12/18/2017 [facility] Height 149.86 cm 12/18/[facility] Respitory Rate 14 12/18/[facility] Heart Rate 86 12/18/2017 [facility] Temperature Oral (F) 98.3 F 12/18/2017 [facility] Systolic (mm Hg) 128 12/18/2017 [facility] Diastolic (mm Hg) 79 12/18/[facility] BMI Calculated 22.06 10/25/2017 [facility] Respitory Rate 14 10/25/[facility] Heart Rate 89 10/25/2017 [facility] Systolic (mm Hg) 126 10/25/2017 [facility] Diastolic (mm Hg) 62 10/25/[facility] Height 149.86 cm 10/25/2017 [facility] Weight 49.545 10/25/[facility] BMI Calculated 22.47 08/21/2017 [facility] Weight 50.455 08/21/2017 [facility] Height 149.86 cm 08/21/2017 [facility] Temperature Oral (F) 98.3 F 08/21/2017 [facility] Systolic (mm Hg) 113 08/21/2017 [facility] Diastolic (mm Hg) 65 08/21/2017 [facility] Respitory Rate 14 08/21/[facility] Heart Rate 97 08/21/[facility] Diastolic (mm Hg) 70 07/28/2017 [facility] Heart Rate 69 07/28/2017 [facility] Systolic (mm Hg) 112 07/28/2017 [facility] Temperature Oral (F) 97.9 F 07/28/2017 [facility] Respitory Rate 18 07/28/2017 [facility] Weight 48.636 07/28/2017 [facility] Temperature Oral (F) 97.8 F 07/28/2017 [facility] Heart Rate 73 07/28/2017 [facility] Respitory Rate 18 07/28/2017 [facility] Height 149.86 cm 07/28/2017 [facility] Systolic (mm Hg) 110 07/28/2017 [facility] Diastolic (mm Hg) 71 07/28/2017 [facility] BMI Calculated 21.66 07/28/2017 [facility] Encounters Location Location Details Encounter Type Encounter Number Reason For Visit Attending Provider ADM Date DC Date Status Source [facility] [place] [facility] [id number] Dia Hess 10/20/2015 10/21/2015 [facility] [place] [facility] [place] [facility] [id number] Dia Jimena 11/03/2015 11/04/2015 [facility] [place] [facility] [place] [facility] [id number] Ranjanchaitanya Eduardo 01/06/2016 01/07/2016 [facility] [place] [facility] [id number] GENOVEVA QUINONES 08/15/2016 Active [facility] Outpatient [id number] GENOVEVA QUINONES 09/28/2016 Active [facility] Outpatient [id number] SALOMON MOREL 10/31/2016 Active [facility] Outpatient [id number] Genoveva Quinones 11/07/2016 11/08/2016 [facility] Outpatient [id number] GENOVEVA QUINONES 12/13/2016 Active [facility] Outpatient [id number] GENOVEVA QUINONES 04/14/2017 Active [facility] Emergency [id number] Melvi Jaquez 07/28/2017 07/28/2017 [facility] Phone Message [id number] 08/01/2017 08/03/2017 [facility] Phone Message [id number] 08/01/2017 08/03/2017 [facility] Phone Message [id number] 08/14/2017 08/16/2017 [facility] Outpatient [id number] GENOVEVA QUINONES 08/21/2017 Active [facility] Outpatient [id number] Genoveva Quinones 08/21/2017 08/22/2017 [facility] Phone Message [id number] 10/10/2017 10/12/2017 [facility] Phone Message [id number] 10/16/2017 10/18/2017 [facility] Phone Message [id number] 10/24/2017 10/26/2017 [facility] Outpatient [id number] SALOMON MCCOYH 10/25/2017 Active [facility] Outpatient [id number] Salomon Mccoyh 10/25/2017 10/26/2017 [facility] Phone Message [id number] 10/27/2017 10/29/2017 [facility] Phone Message [id number] 10/31/2017 11/02/2017 [facility] Phone Message [id number] 11/21/2017 11/23/2017 [facility] Phone Message [id number] 12/07/2017 12/09/2017 [facility] Outpatient [id number] SALOMON MCCOYH 12/18/2017 Active [facility] Outpatient [id number] Salomon Mccoyh 12/18/2017 12/19/2017 [facility] Phone Message [id number] 01/01/2018 01/03/2018 [facility] Phone Message [id number] 01/03/2018 01/05/2018 [facility] Phone Message [id number] 01/08/2018 01/10/2018 [facility] Outpatient [id number] GENOVEVA QUINONES 01/11/2018 Active [facility] Ambulatory Pre-Reg [id number] Genoveva Quinones 01/11/2018 01/11/2018 [facility] Phone Message [id number] 01/24/2018 01/26/2018 [facility] Phone Message [id number] 02/07/2018 02/09/2018 [facility] Outpatient [id number] GENOVEVA QUINONES 03/01/2018 Active [facility] Outpatient [id number] Genoveva Quinones 03/01/2018 03/02/2018 [facility] Outpatient [id number] GENOVEVA QUINONES 03/19/2018 [facility] Outpatient [id number] Genoveva Quinones 03/21/2018 03/22/2018 [facility] Outpatient [id number] IRISH FORDE 04/18/2018 [facility] Outpatient [id number] GENOVEVA QUINONES 07/04/2018 [facility] Procedures Procedure Code Date Perfomer Comments Source Bone density scan<sup>1</sup> [id number] 03/20/2018 1. Osteopenia of the left femoral neck. 2. Osteopenia of the total left hip. 3. Osteopenia of the lumbar spine. [facility] Mammogram<sup>2</sup> [id number] 03/20/2018 There is no mammographic evidence of malignancy. A 1 year screening mammogram is recommended. [facility] Eye examination [id number] 01/02/2017 [facility] Eye examination [id number] 01/02/2017 [facility] Mammogram - screening<sup>1</sup> [id number] 11/07/2016 Mammogram/usg in a year [facility] Mammogram - screening<sup>1</sup> [id number] 11/07/2016 Mammogram/usg in a year [facility] Colonoscopy<sup>2</sup> [id number] 06/10/2016 History of polyps. Next [address] Mello [facility] Colonoscopy<sup>2</sup> [id number] 06/10/2016 History of polyps. Next [address] Mello [facility] Colonoscopy<sup>3</sup> [id number] 06/10/2016 History of polyps. Next [address] Mello [facility] Bone density scan<sup>3</sup> [id number] 03/28/2016 Osteopenia [facility] Bone density scan<sup>3</sup> [id number] 03/28/2016 Osteopenia [facility] Eye examination [id number] 01/03/2016 [facility] Eye examination [id number] 01/03/2016 [facility] MRI of lumbar spine<sup>4</sup> [id number] 11/03/2015 multilevel degenerative disc disease [facility] MRI of lumbar spine<sup>4</sup> [id number] 11/03/2015 multilevel degenerative disc disease [facility] Breast implantation<sup>5</sup> [id number] 09/04/1983 silicone [facility] Breast implantation<sup>5</sup> [id number] 09/04/1983 silicone [facility] Total abdominal hysterectomy with bilateral salpingo-oophorectomy [id number] 09/04/[address] [facility] Uterine operation<sup>6</sup> [id number] 09/04/1975 uterus removal [facility] Total abdominal hysterectomy with bilateral salpingo-oophorectomy [id number] 09/04/1975 [facility] Uterine operation<sup>6</sup> [id number] 09/04/1975 uterus removal [facility] Appendectomy [id number] [facility] Appendectomy [id number] [facility]
--- OUTSIDE RECORDS SUMMARY | 2018-07-17 05:22 | XMS REPORT | Summary of Care ---
Author Author [facility] Organization [facility] Address Unknown Phone Unavailable Encounter RIANA Fermin(FIN) [id number] Date(s): 08/01/17 - 08/02/17 [facility] [address], [address] [place] [address]- [phone] Vital Signs No data available for this [...]
--- OUTSIDE RECORDS SUMMARY | 2018-07-17 05:22 | XMS REPORT | Summary of Care ---
Author Author [facility] Organization [facility] Address Unknown Phone Unavailable Encounter RIANA Fermin(ISABELLA) [id number] Date(s): 11/07/16 - 11/07/16 [facility] [address] [place] [address]- [phone] Discharge Disposition: Home or Self Care Attending Physician: Sary Jacobson MD Referring Physician: Sary Jacobson MD Vital Signs No data available for this section Problem List Condition Effective Dates Status Health Status Informant Anxiety Active disorder(Confirmed) Benign Active hypertension(Confirm ed) IBS (irritable bowel Active syndrome)(Confirmed) GERD Active (gastroesophageal reflux disease)(Confirmed) H/O Active hypercalcemia(Confir med) History of squamous Active cell carcinoma of skin(Confirmed) Mixed Active hyperlipidemia(Confi rmed) Hypomagnesemia(Confi Active rmed) Hypothyroidism(Confi Active rmed) Left breast Active mass(Confirmed) Fibromyalgia(Confirm Active ed) Pharyngitis(Confirme Active d) Insomnia(Confirmed) Active Spinal stenosis, Active lumbar region(Confirmed) Type 1 diabetes Active mellitus with hemoglobin A1c goal of less than 7.0%(Confirmed) Vitamin D Active deficiency(Confirmed ) Allergies, Adverse Reactions, Alerts Substance Reaction Severity Status aspirin Active sulfa drugs Active Medications atorvastatin 20 mg oral tablet See Instructions, # 90 tab, Refill(s) 1, TAKE 1 TABLET EVERY DAY, Pharmacy: [facility]/ pharmacy #[id number] Start Date: 10/30/16 Status: Ordered Results No data available for this section Immunizations Given and Recorded Vaccine Date Status Refusal Reason influenza virus vaccine, inactivated 05/05/16 Recorded pneumococcal [...]
--- OUTSIDE RECORDS SUMMARY | 2018-07-17 05:22 | XMS REPORT | Summary of Care ---
Author Author [facility] Outpatient Imaging [facility] Outpatient [facility] Address Unknown Phone Unavailable Encounter HQ Encntr_alias(FIN) [id number] Date(s): 11/03/15 - 11/03/15 [facility] [address] [address] [phone] Discharge Disposition: Home Attending Physician: Dia Hess [...]
--- OUTSIDE RECORDS SUMMARY | 2018-07-17 05:22 | XMS REPORT | Summary of Care ---
Author Author [facility] Organization [facility] Address Unknown Phone Unavailable Encounter RINAA Fermin(FIN) [id number] Date(s): 08/14/17 - 08/15/17 [facility] [address], [address] [place], [place] [address]- [phone] Vital Signs No data available for this [...]
--- OUTSIDE RECORDS SUMMARY | 2018-07-17 05:23 | XMS REPORT | Summary of Care ---
Author Author [facility] Organization [facility] Address Unknown Phone Unavailable Encounter HQ Jayde_reece(FIN) [id number] Date(s): 01/08/18 - 01/09/18 [facility] [address], [address] [place] [address]- [phone] Vital Signs No data available for this [...] Status sulfa drugs Active aspirin Active Medications levothyroxine 100 mcg (0.1 mg) oral tablet 100 microgram=1 tab, PO, Daily, # 90 tab, 0 Refill(s), Pharmacy: [facility]/pharmacy #[id number] Start Date: 01/10/18 Status: Ordered Results No data available for [...]
--- OUTSIDE RECORDS SUMMARY | 2018-07-17 05:23 | XMS REPORT | Summary of Care ---
Author Author [facility] Organization [facility] Address Unknown Phone Unavailable Encounter HQ Zander(FIN) [id number] Date(s): 01/11/18 - 01/11/18 [facility] [address], [address] [place] [address]- [phone] Attending Physician: Sary Jacobson MD Vital Signs No [...]
--- OUTSIDE RECORDS SUMMARY | 2018-07-17 05:23 | XMS REPORT | Summary of Care ---
Author Author [facility] Organization [facility] Address Unknown Phone Unavailable Encounter HQ Jayde_reece(FIN) [id number] Date(s): 01/24/18 - 01/25/18 [facility] [address], [address] [place] [address]- [phone] Vital Signs No data available for this [...] Active Medications hydrochlorothiazide 50 mg oral tablet 50 mg=1 tab, PO, Daily, # 90 tab, 0 Refill(s), Pharmacy: [facility]/pharmacy #[id number] Start Date: 01/24/18 Status: Ordered Results No data available for this section Immunizations Given and Recorded Vaccine Date Status Refusal Reason diphtheria/pertussis, acel/tetanus adult 07/28/17 Given Hx influenza vaccine-unspecified 06/04/17 Recorded influenza virus vaccine, inactivated 05/05/16 Recorded pneumococcal 23-valent vaccine 1/1/15 Recorded Procedures Procedure Date Related Diagnosis Body [...]
--- OUTSIDE RECORDS SUMMARY | 2018-07-17 05:23 | XMS REPORT | Summary of Care ---
Author Author [facility] Organization [facility] Address Unknown Phone Unavailable Encounter HQ Jose Gr_reece(FIN) [id number] Date(s): 10/31/17 - 11/01/17 [facility] [address], [address] [place] [address]- [phone] Vital Signs No data available for this [...]
--- OUTSIDE RECORDS SUMMARY | 2018-07-17 05:23 | XMS REPORT | Summary of Care ---
Author Author [facility] Organization [facility] Address Unknown Phone Unavailable Encounter HQ Zander(FIN) [id number] Date(s): 01/01/18 - 01/02/18 [facility] [address], [address] [place] [address]- [phone] Vital Signs No data available for this [...] Status sulfa drugs Active aspirin Active Medications Basaglar KwikPen 100 units/mL subcutaneous solution 25 unit, SUB-Q, Bedtime, # 2 box, 1 Refill(s), Pharmacy: [facility] Start Date: 01/03/18 Status: Ordered Results No data available for [...]
--- OUTSIDE RECORDS SUMMARY | 2018-07-17 05:23 | XMS REPORT | Summary of Care ---
Author Author [facility] Organization [facility] Address Unknown Phone Unavailable Encounter HQ Jose Gr_reece(FIN) [id number] Date(s): 01/03/18 - 01/04/18 [facility] [address], [address] [place] [address]- [phone] Vital Signs No data available for this [...]
--- OUTSIDE RECORDS SUMMARY | 2018-07-17 05:23 | XMS REPORT | Summary of Care ---
Author Author [facility] Organization [facility] Address Unknown Phone Unavailable Encounter HQ Zander(FIN) [id number] Date(s): 01/01/18 - 01/02/18 [facility] [address], [address] [place] [address]- [phone] Vital Signs No data available for this [...] Bedtime, # 2 box, 1 Refill(s), Pharmacy: [facility] Start Date: 01/03/18 Status: Ordered Results [...]
--- OUTSIDE RECORDS SUMMARY | 2018-07-17 05:23 | XMS REPORT | Summary of Care ---
Author Author [facility] Organization [facility] Address Unknown Phone Unavailable Encounter HQ Zander(FIN) [id number] Date(s): 01/11/18 - 01/11/18 [facility] [address], [address] [place] [address]- [phone] Attending Physician: Sary Jacobson MD Vital Signs [...]
--- OUTSIDE RECORDS SUMMARY | 2018-07-17 05:23 | XMS REPORT | Summary of Care ---
Author Author [facility] Organization [facility] Address Unknown Phone Unavailable Encounter HQ Zander(FIN) [id number] Date(s): 10/25/17 - 10/25/17 [facility] [address], [address] [place] [address]- [phone] Discharge Disposition: Home or Self Care Attending Physician: Zoe Elaine DO Vital Signs Most recent to 1 oldest [Reference Range]: Height 149.86 cm (10/25/17 9:11 AM) Blood Pressure 126/62 mmHg [90-140/60-90 mmHg] (10/25/17 9:11 AM) Respiratory Rate 14 BRMIN [14-20 BRMIN] (10/25/17 9:11 AM) Peripheral Pulse 89 bpm Rate [60-100 bpm] (10/25/17 9:11 AM) Weight 49.545 kg (10/25/17 9:11 AM) Body Mass Index 22.06 m2 (10/25/17 9:11 AM) Problem List Condition Effective Dates Status [...] Status sulfa drugs Active aspirin Active Medications Wrist Brace Misc/Other 1 ea, MISC, PRN, PRN As directed by physician, dispense one thumb spica brace, # 1 unit, 0 Refill(s) Start Date: 10/25/17 Stop Date: 10/25/18 Status: Ordered Results No data available for [...]
--- OUTSIDE RECORDS SUMMARY | 2018-07-17 05:23 | XMS REPORT | Summary of Care ---
Author Author [facility] Organization [facility] Address Unknown Phone Unavailable Encounter HQ Zander(FIN) [id number] Date(s): 10/10/17 - 10/11/17 [facility] [address], [address] [place] [address]- [phone] Vital Signs No data available for this [...] Status sulfa drugs Active aspirin Active Medications tizanidine 2 mg oral tablet 2 mg=1 tab, PO, Q8H, PRN for muscle spasms, as needed for pain, # 30 tab, 0 Refi ll(s), Pharmacy: [facility]/pharmacy #[id number] Start Date: 10/10/17 Status: Ordered Results No data available for [...]
--- OUTSIDE RECORDS SUMMARY | 2018-07-17 05:23 | XMS REPORT | Summary of Care ---
Author Author [facility] Organization [facility] Address Unknown Phone Unavailable Encounter HQ Jayde_reece(FIN) [id number] Date(s): 10/27/17 - 10/28/17 [facility] [address], [address] [place] [address]- [phone] Vital Signs No data available for this [...] tab, PO, TID, PRN Other-See Comments, X 90 day, # 270 tab, 0 Refill(s), Pharmacy: [facility]/pharmacy #[id number] Start Date: 10/27/17 Stop Date: 11/21/17 Status: Completed Results No data available for this section Immunizations Given and Recorded Vaccine Date Status Refusal Reason diphtheria/pertussis, acel/tetanus adult 11/24/17 Given Hx influenza vaccine-unspecified 06/04/17 Recorded influenza [...]
--- OUTSIDE RECORDS SUMMARY | 2018-07-17 05:24 | XMS REPORT | Summary of Care ---
Author Author [facility] Organization [facility] Address Unknown Phone Unavailable Encounter RIANA Fermin(FIN) [id number] Date(s): 03/01/18 - 03/01/18 [facility] [address], [address] [place] [address]- [phone] Discharge Disposition: Home or Self Care Attending Physician: Sary Jacobson MD Vital Signs Most recent to 1 oldest [Reference Range]: Height 149.86 cm (03/01/18 12:06 PM) Temperature Oral 97.4 DegF [96.4-99.1 DegF] (03/01/18 12:06 PM) Blood Pressure 116/70 mmHg [90-140/60-90 mmHg] (03/01/18 12:06 PM) Respiratory Rate 16 BRMIN [14-20 BRMIN] (03/01/18 12:06 PM) Peripheral Pulse 101 bpm Rate [60-100 bpm] *HI* (03/01/18 12:06 PM) Weight 51.818 kg (03/01/18 12:06 PM) Body Mass Index 23.07 m2 (03/01/18 12:06 PM) Problem List Condition Effective Dates Status [...] Left breast Active mass(Confirmed) Fibromyalgia(Confirm Active ed) Osteoporosis(Confirm Active ed) Tenosynovitis, de Active Quervain(Confirmed) Insomnia(Confirmed) Active Spinal stenosis, Active lumbar region(Confirmed) SCC (squamous cell Active carcinoma)(Confirmed ) Type 1 diabetes Active mellitus with hemoglobin A1c goal of less than 7.0%(Confirmed) Vitamin D Active deficiency(Confirmed ) Allergies, Adverse Reactions, Alerts Substance Reaction Severity Status sulfa drugs Active aspirin Active Medications tizanidine 2 mg oral tablet 4 mg=2 tab, PO, Q12H, PRN for muscle spasms, as needed for pain, # 40 tab, 0 Ref ill(s), Pharmacy: [facility]/pharmacy #[id number] Start Date: 03/01/18 Status: Ordered Unithroid 125 mcg (0.125 mg) oral tablet 125 microgram=1 tab, PO, Daily, # 90 tab, 0 Refill(s) Start Date: 03/01/18 Status: Ordered Results No data available for this section Immunizations Given and Recorded Vaccine Date Status Refusal Reason diphtheria/pertussis, acel/tetanus adult 07/28/17 Given Hx influenza vaccine-unspecified 06/04/17 Recorded influenza virus vaccine, inactivated 05/05/16 Recorded pneumococcal 23-valent vaccine 09/04/14 Recorded Procedures Procedure Date Related Diagnosis Body Site Status Eye examination 01/02/17 Completed Mammogram - screening1 11/07/16 Completed Colonoscopy2 06/10/16 Completed Bone density scan3 03/28/16 Completed MRI of lumbar spine4 11/03/15 Completed [...] Reg Smoking Cessation Counseling No entered on: 03/01/18 Assessment and Plan No data available for this section
--- OUTSIDE RECORDS SUMMARY | 2018-07-17 05:24 | XMS REPORT | Summary of Care ---
Author Author [facility] Organization [facility] Address Unknown Phone Unavailable Encounter HQ Jayde_reece(FIN) [id number] Date(s): 11/21/17 - 11/22/17 [facility] [address], [address] [place] [address]- [phone] Vital Signs No data available for this [...] tablet 25 mg=1 tab, PO, BID, PRN Other-See Comments, X 30 day, # 60 tab, 1 Refill(s), P harmacy: [facility] Start Date: 11/21/17 Stop Date: 01/20/18 Status: Completed Results No data available for [...]
--- OUTSIDE RECORDS SUMMARY | 2018-07-17 05:24 | XMS REPORT | Summary of Care ---
Author Author [facility] Organization [facility] Address Unknown Phone Unavailable Encounter HQ Jayde_reece(FIN) [id number] Date(s): 12/07/17 - 12/08/17 [facility] [address], [address] [place] [address]- [phone] Vital Signs No data available for this [...]
--- OUTSIDE RECORDS SUMMARY | 2018-07-17 05:24 | XMS REPORT | Summary of Care ---
Author Author [facility] Organization [facility] Address Unknown Phone Unavailable Encounter HQ Jayde_reece(FIN) [id number] Date(s): 02/07/18 - 02/08/18 [facility] [address], [address] [place] [address] [phone] Vital Signs No data available for this [...] Status sulfa drugs Active aspirin Active Medications ramipril 2.5 mg oral capsule 2.5 mg=1 cap, PO, Daily, # 90 cap, 1 Refill(s), Pharmacy: [facility]/pharmacy #[id number] Start Date: 02/07/18 Stop Date: 08/06/18 Status: Ordered Results No data available for [...]
--- OUTSIDE RECORDS SUMMARY | 2018-07-17 05:24 | XMS REPORT | Summary of Care ---
Author Author [facility] Organization [facility] Address Unknown Phone Unavailable Encounter RIANA Fermin(ISABELLA) [id number] Date(s): 03/21/18 - 03/21/18 [facility] [address] [place] [address]- Discharge Disposition: Home or Self Care Attending [...] Procedure Date Related Diagnosis Body Site Status Bone density scan1 03/20/18 Completed Mammogram2 03/20/18 Completed Eye examination 01/02/17 Completed Colonoscopy3 06/10/16 Completed MRI of lumbar spine4 11/03/15 Completed Breast implantation5 1983 Completed Total abdominal hysterectomy with bilateral 1975 Completed salpingo-oophorectomy Uterine operation1975 Completed Appendectomy Completed 11. Osteopenia of the left femoral neck. 2. Osteopenia of the total left hip. 3. Osteopenia of the lumbar spine. 2There is no mammographic evidence of malignancy. A 1 year screening mammogram is recommended. 3History of polyps. Next [address] Mello 4multilevel degenerative disc disease 5silicone 6uterus removal [...]
--- OUTSIDE RECORDS SUMMARY | 2018-07-17 05:24 | XMS REPORT ---
Author Author [facility] Address Unknown Phone Unavailable Care Team Providers Care Hand Therapist Name Role Phone FLACO TRINH Unavailable Unavailable Problems This patient has no known problems. Allergies, Adverse Reactions, Alerts This patient has no known allergies or adverse reactions. Medications This patient has no known medications. Results Test Description Test Time Test Comments Text Results Atomic Results Result Comments CHEST 2 VIEWS 2018-07-13 12:21:00 [place] [address] Patient Name: DAYA HESS MR #: [id number] : 1945 Age/Sex: 72/F Req #: [id number] Adm Physician: Ordered by: FLACO TRINH MD Report #: [id number] Location: OR Room/Bed: Procedure: [id number] DX/CHEST 2 VIEWS Exam Date: 07/13/18 Exam Time: 1205 REPORT STATUS: Signed EXAMINATION: PA and lateral views of the chest. COM PARISON: None CLINICAL HISTORY: preoperative, trigger finger DISCUSSION: Lines/tubes: None. Lungs: The lungs are well inflated and clear. No pneumonia or pulmonary edema. None. Pleura: No pleural effusion or pneumothorax. Heart and mediastinum: The cardiomediastinal silhouette is normal. Bones and soft tissues: No acute bony abnormalities. IMPRESSION: No acute cardiopulmonary abnormalities. Signed by: Dr. Drew Ely M.D. on 07/13/2018 12:23 PM Dictated By: DREW ELY MD 1223 Transcribed By: JOSUÉ on 07/13/18 1223 COPY TO: FLACO TRINH MD
--- NOTE | 2018-07-17 08:37 | Operative Report ---
DATE OF PROCEDURE: July 17, 2018 PREOPERATIVE DIAGNOSES 1. Right deQuervain tenosynovitis. 2. Stenosing tenosynovitis of right long finger. POSTOPERATIVE DIAGNOSES 1. Right deQuervain tenosynovitis. 2. Extensor tenosynovitis, right. 3. Stenosing tenosynovitis of right long finger. PROCEDURES PERFORMED 1. Right deQuervain release. 2. Extensor tenosynovectomy, right. 3. Tenovaginotomy of right long finger. ANESTHESIA: General anesthesia. HISTORY: The patient is a 72-year-old female who has deQuervain tenosynovitis and trigger finger of the right long finger that are recalcitrant to conservative measures . The risks, benefits, and alternatives to treatment were discussed with the patient, and they are prepared to undergo the procedures outlined. DESCRIPTION OF PROCEDURE: The patient was brought to the operating theater. After the induction of adequate general inhalation anesthesia, the patient was prepped and draped in a supine position. A time out was performed by the entire operating room team. An oblique incision was marked out over the right 1st dorsal compartment. The right upper extremity was exsanguinated and a tourniquet inflated to a pressure of 250 mmHg. The incision was made through the skin and subcutaneous tissue, and all the venous tributaries were controlled with the bipolar cautery. Efforts were made to identify the branches of the radial sensory nerve and retract and protect them as well as possible. The dissection continued directly onto the dorsal aspect of the 1st dorsal compartment. The 1st dorsal compartment was noted to be thickened and was then incised longitudinally, freeing up the extensor tendons. Note was made of an accessory compartment, which housed the EPB tendon separately. This compartment was released as well, and the tendons were then placed through a range of motion. There was noted to be good gliding within the 1st dorsal compartment of both tendon groups. Proliferative extensor tenosynovium was then excised from both tendons, and the intervening septum between the APL and EPB tendons was removed as well. The wound was copiously irrigated with bacteriostatic saline and closed with a 5-0 nylon in an interrupted horizontal mattress fashion. A Marcaine field block was performed at the operative site. The tourniquet was deflated, and all the fingers pinked up nicely. A sterile bulking conforming bandage was applied to the hand and wrist and distal forearm. A fiberglass splint was fashioned as a dorsally based thumb spica and held in place with a loosely wrapped Reji wrap. An oblique incision was marked out over the A1 mono of the right long finger. The upper extremity was exsanguinated, and a tourniquet was inflated to a pressure of 250 mmHg. The incision was made through the skin and subcutaneous tissues. All venous tributaries were controlled with bipolar cautery. The incision was deepened through the palmar tissues. The neurovascular bundles on the radial and ulnar sides of the flexor tendon sheath were identified and retracted away from the flexor tendon sheath and preserved. The A1 mono of the affected finger was identified and incised longitudinally, taking care to protect and preserve the flexor tendons within the sheath. After the complete length of the mono had been transected, the tendons were placed in a range of motion. There was noted to be good motion without any locking. The wound was then copiously irrigated with bacteriostatic saline and closed with 5-0 nylon in an interrupted horizontal mattress fashion. A Marcaine field block was performed at the operative site. The tourniquet was deflated. All the fingers pinked up nicely. A sterile bulky conforming bandage was applied to the hand. The patient tolerated the procedure well and was brought to the recovery room in satisfactory condition and discharged with a postoperative instruction sheet as well as a followup appointment. Job#: [id number]
[2018-07-17 08:45] VITALS: BP 139/55
== END | disposition home or self-care (01) ==
LOC: OR 05:09
PROVIDERS: ATTEND Plastic Surgery
DX: M65.4 Radial styloid tenosynovitis [de Quervain] (principal); M65.841 Other synovitis and tenosynovitis, right hand; M65.331 Trigger finger, right middle finger; E11.9 Type 2 diabetes mellitus without complications; K21.9 Gastro-esophageal reflux disease without esophagitis; K58.9 Irritable bowel syndrome, unspecified; Z88.6 Allergy status to analgesic agent; Z88.2 Allergy status to sulfonamides; Z01.812 Encounter for preprocedural laboratory examination; Z01.818 Encounter for other preprocedural examination; Z79.4 Long term (current) use of insulin
CPT/HCPCS: 25110; 26055; 36415 ×2; 71046; 80048; 82948; 84132; 85025; J0690; J1100; J1885; J2001; J2250; J2405; J2704